=== PATIENT | female | born 1995 | race Asian ===

== ENCOUNTER 2019-03-12 13:07 | Emergency (ER) | payer BC ==
[2019-03-12 13:38] VITALS: BP 129/86
--- NOTE | 2019-03-12 13:46 | UC ---
UC General HPI - History of Current Complaint Chief Complaint: UCMedRefill Stated Complaint: MEDICATION REFILL Time Seen by Provider: 03/12/19 13:23 Hx Last Menstrual Period: 02/10/19 Pain Intensity: 0 - Allergy/Home Medications Allergies/Adverse Reactions: Allergies Allergy/AdvReac Type Severity Reaction Status Date / Time Penicillins Allergy Rash Verified 03/12/19 13:33 Home Medications: Home Medications NK [No Home Medications Reported] 03/12/19 [History Confirmed 03/12/19] PMH/Surg Hx/FS Hx/Imm Hx - Surgical History Surgical History: None - Social History Alcohol Use: Occasionally Substance Use Type: None Smoking Status (MU): Never Smoked Tobacco Physical Exam Vital Signs: Initial Vital Signs Temp 98.2 F 03/12/19 13:33 Pulse 85 03/12/19 13:33 Resp 16 03/12/19 13:33 BP 129/86 03/12/19 13:33 Pulse Ox 100 03/12/19 13:33 Discharge ED - Discharge Plan Referrals: No Primary Care Phys,NOPCP [Primary Care Provider] -
--- NOTE | 2019-03-12 13:47 | UC ---
UC General HPI - HPI Summary HPI Summary: Pt presents with c/o situational anxiety "attacks". Pt states that she is seeing a therapist in [facility], where she lives, and was recommended to seek a clinical therapist for anti anxiety medications. Pt has used xanax previously and states that helps relieve her feelings of chest tightness and generalized anxiety. Pt is requesting a rx for xanax until she can see her PCP in [facility]. - History of Current Complaint Chief Complaint: UCMedRefill Stated Complaint: MEDICATION REFILL Time Seen by Provider: 03/12/19 13:23 Hx Obtained From: Patient Hx Last Menstrual Period: 02/10/19 Onset/Duration: Sudden Onset, Lasting Minutes, Lasting Hours, Resolved - currently resolved Timing: Intermittent Episodes Lasting: - minutes to hours Onset Severity: Moderate Current Severity: None Pain Intensity: 0 Associated Signs & Symptoms: Positive: Chest Pain, SOB Similar Episode/Dx as: anxiety - Allergy/Home Medications Allergies/Adverse Reactions: Allergies Allergy/AdvReac Type Severity Reaction Status Date / Time Penicillins Allergy Rash Verified 03/12/19 13:33 PMH/Surg Hx/FS Hx/Imm Hx Previously Healthy: Yes - Surgical History Surgical History: None - Family History Known Family History: Positive: Unknown - pt is adopted from [place] - Social History Occupation: Employed Full-time Lives: Alone Alcohol Use: Occasionally Substance Use Type: None Smoking Status (MU): Never Smoked Tobacco Have You Smoked in the Last Year: No - Immunization History Vaccination Up to Date: Yes Review of Systems All Other Systems Reviewed And Are Negative: Yes Constitutional: Positive: Negative Skin: Positive: Negative Eyes: Positive: Negative ENT: Positive: Negative Respiratory: Positive: Negative Cardiovascular: Positive: Palpitations, Chest Pain Gastrointestinal: Positive: Negative Genitourinary: Positive: Negative Motor: Positive: Negative Neurovascular: Positive: Negative Musculoskeletal: Positive: Negative Neurological: Positive: Negative Psychological: Positive: Anxious Is Patient Immunocompromised?: No Physical Exam Triage Information Reviewed: Yes Appearance: Well-Appearing Vital Signs: Initial Vital Signs Temp 98.2 F 03/12/19 13:33 Pulse 85 03/12/19 13:33 Resp 16 03/12/19 13:33 BP 129/86 03/12/19 13:33 Pulse Ox 100 03/12/19 13:33 Vital Signs Reviewed: Yes Eye Exam: Normal ENT: Positive: Hearing grossly normal Dental Exam: Normal Neck exam: Normal Respiratory: Positive: No respiratory distress Musculoskeletal Exam: Normal Neurological Exam: Normal Psychological Exam: Normal Skin Exam: Normal Course/Dx - Course Course Of Treatment: I discussed the use of xanax and the risk factors associated with use of medication. Pt verbalized understanding and agreed to plan of care. - Differential Dx - Multi-Symptom Differential Diagnoses: Other - anxiety, situational - Diagnoses Provider Diagnosis: Anxiety Discharge ED - Sign-Out/Discharge Documenting (check all that apply): Patient Departure All imaging exams completed and their final reports reviewed: No Studies - Discharge Plan Condition: Stable Disposition: HOME Prescriptions: ALPRAZolam TAB* [Xanax TAB*] 0.25 mg PO Q8H PRN #15 tab MDD 3 tabs PRN Reason: Anxiety Patient Education Materials: Generalized Anxiety Disorder (ED), Medicine Refill (ED) Referrals: [facility] [place] [facility] [Outside] No Primary Care Phys,NOPCP [Primary Care Provider] - Additional Instructions: Please follow up with your PCP and therapist for continuity of care. - Billing Disposition and Condition Condition: STABLE Disposition: Home
== END 2019-03-12 13:54 | disposition home or self-care (01) ==
LOC: UCCORT 13:07
DX: Z76.0 Encounter for issue of repeat prescription (principal); F41.1 Generalized anxiety disorder; R00.2 Palpitations; R06.02 Shortness of breath; R07.9 Chest pain, unspecified; Z88.0 Allergy status to penicillin
CPT/HCPCS: 99202; G0463